=== PATIENT | male | born 1965 | race Caucasian/White ===

== ENCOUNTER 2018-04-22 19:22 | Emergency (ER) | payer OTHER ==
[2018-04-22] MEDS ORDERED: HYDROmorphONE/DILAUDID 2 MG/ML INJ IVP ONE (19:52)
[2018-04-22] MEDS ORDERED: NS 1,000 ML IV ONE (19:52)
--- NOTE | 2018-04-22 19:52 | EDPHY ---
H & P Stated Complaint: left flank pain for one hour Time Seen by Provider: 04/22/18 19:52 HPI/ROS: HPI CHIEF COMPLAINT: Left flank pain, nausea HISTORY OF PRESENT ILLNESS: Patient is a 52-year-old male, presents emergency room with left flank pain. He states rather severe over the past few hours with associated nausea but no vomiting. Patient has a remote history of 20 years ago of a kidney stone, he states he feels very similar. Describes the pain as left-sided flank sharp stabbing. Does not radiate. He denies any testicular pain or left lower quadrant abdominal pain. Denies gross hematuria or dysuria. Denies testicular pain. Additionally denies chest pain or shortness of breath. No fever. He is an insulin-dependent diabetic. Main complaint left-sided flank pain. Took a hydrocodone prior to arrival pain slightly improved but still has ongoing pain. Past Medical History: Remote history kidney stones, insulin-dependent diabetes takes Crestor, Past Surgical History: Denies any recent surgical history no abdominal surgery Social History: Denies daily use of drugs alcohol tobacco. Family History: Noncontributory ROS REVIEW OF SYSTEMS: A comprehensive 10 point review of systems is otherwise negative aside from elements mentioned in the history of present illness. Exam Constitutional nontoxic appearing, triage nursing summary reviewed, vital signs reviewed, awake/alert. Eyes normal conjunctivae and sclera, EOMI, PERRLA. HENT normal inspection, atraumatic, moist mucus membranes, no epistaxis, neck supple/ no meningismus, no raccoon eyes. Respiratory clear to auscultation bilaterally, normal breath sounds, no respiratory distress, no wheezing. Cardiovascular rate normal, regular rhythm, no murmur, no edema, distal pulses normal. Gastrointestinal soft, non-tender, no rebound, no guarding, normal bowel sounds, no distension, no pulsatile mass. Genitourinary mild left CVA tenderness. Musculoskeletal no midline vertebral tenderness, full range of motion, no calf swelling, no tenderness of extremities, no meningismus, good pulses, neurovascularly intact. Skin pink, warm, & dry, no rash, skin atraumatic. Neurologic awake, alert and oriented x 3, AAOx3, moves all 4 extremities equally, motor intact, sensory intact, CN II-XII intact, normal cerebellar, normal vision, normal speech. Psychiatric normal mood/affect. Heme/Lymph/Immune no lymphadenopathy. Differential diagnosis includes but is not limited to and in no particular order : Bowel obstruction, appendicitis, gallbladder disease, diverticulitis, colitis , enteritis, perforated viscus, gastritis, GERD, esophagitis, urinary tract infection, pyelonephritis, kidney stones Medical Decision Making: Plan for this patient: IV establishment IV fluid bolus, 0.5 mg for Dilaudid, 6.25 mg Phenergan for nausea, urinalysis, basic blood work, gentle IV hydration, CT scan abdomen pelvis without contrast. Re- evaluate. Re-evaluation: CT scan abdomen pelvis without contrast shows a left-sided proximal UpJ stone 4 x 4 x 6 mm with mild hydronephrosis/nephric strandigTai Ng. Patient's urinalysis pending. Patient's pain is well controlled on re-evaluation at 9:47 p.m.. Patient's pain is well controlled with IV Dilaudid IV Toradol. Electrolytes appropriate. Urinalysis pending. Given that the patient's pain is well controlled. Feels comfortable going home. He does have a high UPJ stone. Recommend close follow-up with urology. Return precautions discussed with develops worsening back pain, fever, vomiting , urinary pain or discomfort return to the ER he understands. He is comfortable this plan. Patient will be referred to Urology on outpatient basis. Recommend [place] for pain control Phenergan for nausea, Flomax. Additionally discussed return precautions he understands if he has worsening abdominal pain, flank pain, fever, vomiting should return emergency room. Recommend close follow-up with urology. Source: Patient - Personal History Current Tetanus/Diphtheria Vaccine: Yes Current Tetanus Diphtheria and Acellular Pertussis (TDAP): Yes - Medical/Surgical History Hx Asthma: No Hx Chronic Respiratory Disease: No Hx Diabetes: Yes Hx Cardiac Disease: No Hx Renal Disease: No Hx Cirrhosis: No Hx Alcoholism: No Hx HIV/AIDS: No Hx Splenectomy or Spleen Trauma: No Other PMH: kidney stones, DM 1, shoulder surgery - Social History Smoking Status: Never smoked Constitutional: Initial Vital Signs Temperature (C) 36.4 C 04/22/18 19:23 Heart Rate 71 04/22/18 19:23 Respiratory Rate 16 04/22/18 19:23 Blood Pressure 159/97 H 04/22/18 19:23 O2 Sat (%) 97 04/22/18 19:23 O2 Delivery Mode Room Air Allergies/Adverse Reactions: No Known Allergies Allergy (Unverified 04/22/18 19:26) Home Medications: Medication Instructions Recorded Crestor 04/22/18 Hydrocodone/APAP 5/325 [[place] 1 - 2 tab PO Q4H PRN #10 tab 04/22/18 5/325] Levothyroxine 04/22/18 Lexapro 04/22/18 Promethazine HCl [Phenergan 25mg 25 mg PO BID #10 tab 04/22/18 (*)] Tamsulosin HCl [Flomax] 0.4 mg PO DAILY #10 cap 04/22/18 Medical Decision Making - Data Points Laboratory Results: Laboratory Results 04/22/18 20:00 04/22/18 20:00 Medications Given: Discontinued Medications Hydrocodone Bitart/Acetaminophen ([place] 5/325mg Prepack#6) 1 btl TAKEHOME EDNOW ONE Stop: 04/22/18 22:45 Last Admin: 04/22/18 23:50 Dose: 1 btl Hydromorphone HCl (Dilaudid) 0.5 mg IVP EDNOW ONE Stop: 04/22/18 19:53 Last Admin: 04/22/18 20:08 Dose: 0.5 mg Sodium Chloride (Ns) 1,000 mls @ 0 mls/hr IV EDNOW ONE; Wide Open PRN Reason: Protocol Stop: 04/22/18 19:53 Last Admin: 04/22/18 20:08 Dose: 1,000 mls Ketorolac Tromethamine (Toradol) 30 mg IVP EDNOW ONE Stop: 04/22/18 20:53 Last Admin: 04/22/18 20:57 Dose: 30 mg Promethazine HCl (Phenergan) 6.25 mg IVP ONCE ONE Stop: 04/22/18 20:00 Last Admin: 04/22/18 20:09 Dose: 6.25 mg Departure - Departure Disposition: Home, Routine, Self-Care Clinical Impression: Kidney stone on left side, Flank pain Condition: Good Instructions: Hydrocodone/Acetaminophen (By mouth), Kidney Stones (ED), Flank Pain (ED) Additional Instructions: 1. Return emergency room if develops severe flank pain vomiting or fever. 2. Follow up with Urology. Referrals: Trey Coronel MD [Primary Care Provider] - As per Instructions Jad Garcias MD [Medical Doctor] - As per Instructions Prescriptions: Hydrocodone/APAP 5/325 [[place] 5/325] 1 - 2 tab PO Q4H PRN #10 tab PRN Reason: Pain, Moderate Promethazine HCl [Phenergan 25mg (*)] 25 mg PO BID #10 tab Tamsulosin HCl [Flomax] 0.4 mg PO DAILY #10 cap
[2018-04-22] MEDS ORDERED: PROMETHAZINE HCL 25 MG/ML INJ IVP ONE (19:59)
[2018-04-22 20:20] LABS: PLATELET COUNT 267 10^3/uL (150-400)
[2018-04-22] MEDS ORDERED: KETOROLAC 30 MG/1 ML SDV IVP ONE (20:52)
[2018-04-22] MEDS ORDERED: HYDROCOD/APAP 5/325 PREPACK#6 BTL TAKEHOME ONE (22:44)
[2018-04-22 23:57] VITALS: BP 126/76
== END 2018-04-22 23:58 | disposition home or self-care (01) ==
DX: N20.0 Calculus of kidney (principal); E10.9 Type 1 diabetes mellitus without complications; E86.9 Volume depletion, unspecified
CPT/HCPCS: 96374; J1170; J1885; J2550